=== PATIENT | female | born 1980 | race Asian ===

== ENCOUNTER 2020-03-29 15:36 | Inpatient (IN) | payer BC ==
[2020-03-29] VITALS (25 sets, daily range): BP systolic 112–136; BP diastolic 62–82; PULSE 68–98; TEMP 97.8–98.3
[~2020-03-29] VITALS: Ht 157.5 cm; Wt 57.3 kg
--- NOTE | 2020-03-29 15:30 | NUR ---
Pt arrives on unit ambulatory with spouse. States increase of ctx pain and frequency that began around 0400. Denies vaginal bleeding, LOF, and reports GFM. Changed into clean gown. EFM and toco applied. VSS. SVE per Lorenzo Martínez RN . Dr. Infante notified. Orders for admission.
[2020-03-29] MEDS ORDERED: PRENATAL MVI (15:43)
--- NOTE | 2020-03-29 16:00 | NUR ---
Iv start to right hand. Iv fluids of lactated ringers infusing bolus for epidural. 1620 Anesthesia here for epidural. See anethesia notes please.
[2020-03-29 16:45] LABS: BASO # 0.1 (0.0-0.2); BASO % 0.3 % (0.0-2.0); EOS % 0.2 % (0-4.0); GRAN # 10.3 (1.4-6.5); GRAN % 71.5 % (42.2-75.2); HEMATOCRIT 43.3 % (37.0-47.0); HEMOGLOBIN 14.6 g/dl (12.5-16.0); LYMPH # 3.1 (1.2-3.4); LYMPH % 21.3 % (20.0-51.0); MEAN CELL VOLUME 94 fl (80.0-100.0); MEAN CORPUSCULAR HEMOGLOBIN 32 pg (27.0-31.0); MEAN CORPUSCULAR HGB CONC 34 g/dl (33.0-37.0); MEAN PLATELET VOLUME 12.8 fl (7.4-10.4); MONO # 0.9 (0.1-0.6); MONO % 6.2 % (1.7-9.3); PLATELET COUNT 168 K/mm3 (130-400); RED BLOOD COUNT 4.59 M/mm3 (4.10-5.30); REDCELL DISTRIBUTION WIDTH-CV 13.1 % (11.5-14.5)
--- NOTE | 2020-03-29 17:00 | NUR ---
Rests in bed, alert. States feeling better.
--- NOTE | 2020-03-29 18:00 | NUR ---
1809 Starting to push with contractions, tolerates well. at bedside.
--- NOTE | 2020-03-29 18:30 | NUR ---
Continues to push with contractions, tolerates well.
--- NOTE | 2020-03-29 18:45 | NUR ---
Continues to push. Report given to nurse Pink.
--- NOTE | 2020-03-29 19:10 | NUR ---
PCR.HACKER in to assume care. pt pushing, loving and attentive @ bedside.
--- NOTE | 2020-03-29 19:10 | NUR ---
Pt reports 'constant" L lower rib pain.
--- NOTE | 2020-03-29 20:00 | NUR ---
FHT's to 100's with pushing. Dr Castro into room, pt set up for delivery. 2011 female by Brice after reduction of nuchal cord X 1.
--- NOTE | 2020-03-29 20:14 | NUR ---
Placenta delivers spont and intact with 3 vessell cord. Pitocin 30 units in 500cc LR IV started @ bolus rate.
--- NOTE | 2020-03-29 20:25 | NUR ---
Perineal repair complete, pericare done, ice pack to perineum, bed together.
--- NOTE | 2020-03-29 20:35 | NUR ---
St cath by Dr Castro with return of moderate amount urine.
[2020-03-30] VITALS: BP 112/63; PULSE 76
[2020-03-30 00:30] VITALS: BP 113/64; PULSE 79
--- NOTE | 2020-03-30 00:30 | NUR ---
IV TO INT, epid catheter dc'd. Pt unable to move L leg. Pivot transfer to wheelchair and into bathroom. Unable to void @ this time. Pivot transfer to wheelchair and to room. Moved to bed without difficulty. Pt qand spouse instructed that pt to not get up out of bed without staff assistance. Verbalize understanding.
--- NOTE | 2020-03-30 04:45 | NUR ---
Pt up to BR and ambulates well. Unable to void after listening to running water and using warm water in water bottle. Returns to bed for straight cath. Pt tolerates procedure well and bladder emptied of pale yellow urine. Ice pack applied for perineal swelling.
--- NOTE | 2020-03-30 08:00 | NUR ---
Rests in bed, alert. Denies any needs at this time. Spouse at bedside.
--- NOTE | 2020-03-30 09:01 | NUR ---
Initial visit; Parents thanked [employer] for offering congratulations and God's blessings for the of their daughter. [employer] thanked family for choosing [facility].
[2020-03-30 09:30] VITALS: BP 113/63; PULSE 71; TEMP 98.3
[2020-03-30 14:15] VITALS: BP 106/70; PULSE 86; TEMP 97.9
[2020-03-30 17:15] VITALS: BP 108/67; PULSE 78; TEMP 98.4
[2020-03-30 20:30] VITALS: BP 104/58; PULSE 68; TEMP 97.8
[2020-03-30] MEDS ORDERED: MOTRIN 800800 MG/TAB PO (20:34)
[2020-03-31 09:00] VITALS: BP 111/66; PULSE 89; TEMP 98.4
[2020-03-31 16:05] VITALS: BP 117/65; PULSE 82; TEMP 98.1
== END 2020-03-31 18:45 | disposition home or self-care (01) | DRG 807 ==
LOC: LDRO 15:36 → LDR 15:37 → OB 03-30 01:00
PROVIDERS: ADMIT Obstetrics & Gynecology
PROC: 10E0XZZ Delivery of Products of Conception, External Approach (ICD-10-PCS; principal; 2020-03-29)
PROC: 0KQM0ZZ Repair Perineum Muscle, Open Approach (ICD-10-PCS; 2020-03-29)
PROC: 10907ZC Drainage of Amniotic Fluid, Therapeutic from Products of Conception, Via Natural or Artificial Opening (ICD-10-PCS; 2020-03-29)
DX: O69.81X0 Labor and delivery complicated by cord around neck, without compression, not applicable or unspecified (principal); Z37.0 Single live birth; O70.1 Second degree perineal laceration during delivery; Z3A.38 38 weeks gestation of pregnancy
CPT/HCPCS: J2590; J7120

== ENCOUNTER → 2020-04-09 | Outpatient (CLI) | payer BC ==
[~2020-04-09] MED LIST: MOTRIN 800800 MG/TAB PO; PRENATAL MVI
--- NOTE | 2020-04-09 14:50 | NUR ---
Pt, Solomonagathaephraim Cruz, presents for outpatient consult with 11 day old baby girl, Delaney Cruz, and pt's spouse, Gagan. They have been in contact with this LC and are seeking latch assistance as Delaney is not directly latching to breast, she will occassional with the nipple shield. Delaney was born on 03/29/2018 and weighed 6#15.1oz (3150 gms). At her first doctor appt on 04/02/20 she weighed 6#8oz. Delaney started receiving formula supplement while in the hospital via SNS, once they discharged, they started supplementing via bottle and pt started using a breastpump to help establish milk supply. Currently Geo breastfeeds Delaney BID, otherwise she is bottle fed 50-80ml per feeding. Pt is expressing about 50-90ml per pump session day, and noc. They occassional have to use some formula. LC works with pt and infant to latch here, the nipple everts fine but the baby does not open her mouth widely to get a deep latch. Milk is expressed to soften the areola a little bit as we worked on latching. LC eventually gets baby latched pretty good on the left breast. After feeding about 20 minutes Delaney has a weight gain of 1.3oz (38 gms). She is difficult to burp and her stomach is taught. Latching on the second side was not successful, as would not open her mouth to even attempt latching. LC answers and infant concerns during the consultation. Burping seems to be a challenge at home as well. Suggestions provided and demonstrated but Delaney does not burp while here. POC: Continue with current feeding methods, try increasing bottle amount to 90ml per feeding to see if baby will sleepy better at noc, currently up every hour. Continue trying , consider follow up consult if baby starts showing more interest and opening of the mouth is more spontaneous. F/U: As scheduled with Dr. Johnson. Questions invited and answered.
== END ==
LOC: LAC 10:49
DX: Z39.1 Encounter for care and examination of lactating mother (principal); Z71.89 Other specified counseling